=== PATIENT | female | born 1935 | race Caucasian/White ===

== ENCOUNTER 2016-10-27 21:56 | Inpatient (IN) ==
--- NOTE | 2016-10-27 22:28 | Emergency Department Note ---
Disposition Clinical Impression: Symptomatic anemia, ANA LAURA (acute kidney injury), Generalized weakness, Decreased ambulation status, Elevated troponin Disposition: Admitted As Inpatient Condition: Fair Time of Disposition: 00:32 Weakness HPI - General Chief complaint: ED Weakness Stated complaint: weakness Time Seen by Provider: 10/27/16 22:01 Source: patient, EMS Mode of arrival: ambulatory Limitations: no limitations Nursing Notes Reviewed: Yes Vital Signs Reviewed: Yes - History of Present Illness HPI Narrative: Patient is an 81-year-old female with past medical history of A. fib, COPD, arthritis. She presents today accompanied by her sons due to generalized weakness and falls over the past several days. Son states that the patient has been slightly altered from baseline, has also been weaker than usual. She lives by herself, basic that they can no longer take care of her. She herself admits to worsened generalized weakness, denies any other chest pain, nausea, vomiting, fevers, abdominal pain, numbness, tingling. She also admits to shortness of breath with ambulation. She says that this is near baseline for her COPD, chronically wears 2-3 L nasal cannula oxygen home. Pain Scale: 10 - Related Data Home Medications Medication Instructions Recorded Confirmed ALPRAZolam [Xanax 1 MG Tablet] 1 mg PO BID #0 08/11/15 10/07/15 Albuterol Sulfate [Proair Hfa] 2 puff IH Q4H PRN 10/07/15 10/08/15 Diclofenac Sodium [Voltaren] 1 appl TP QID 10/07/15 10/07/15 Furosemide [Lasix] 20 mg PO DAILY 10/07/15 10/07/15 Polyethylene Glycol 3350 [MiraLAX 17 gm PO DAILY 10/07/15 10/08/15 bowel prep] Previous Rx's Medication Instructions Recorded Rivaroxaban [Xarelto] 20 mg PO DAILY #30 tablet 08/17/15 Amiodarone [Cordarone] 200 mg PO DAILY #30 tablet 08/23/15 Aspirin 81 mg PO DAILY #30 tab.chew 08/23/15 Atorvastatin [Lipitor] 40 mg PO HS #30 tablet 08/23/15 Budesonide/Formoterol 80/4.5 2 puff IH BIDR #2 inhaler 08/23/15 [Symbicort 80/4.5] Carvedilol [Coreg] 6.25 mg PO BIDWM #60 tablet 08/23/15 Lisinopril [Zestril] 2.5 mg PO DAILY #30 tablet 08/23/15 OxyCODONE/APAP 10/325 [Percocet 1 each PO Q6H PRN 7 Days 10/09/15 10/325 MG] Allergies Allergy/AdvReac Type Severity Reaction Status Date / Time prednisone Allergy Hives Verified 08/11/15 11:43 All systems ED: reviewed and negative except as stated. Constitutional: Denies: fever Cardiovascular: Denies: chest pain Respiratory: Reports: dyspnea. Denies: cough, wheezes Gastrointestinal: Denies: abdominal pain, nausea, vomiting, diarrhea Neurological: Reports: weakness. Denies: numbness, paresthesias Endocrine: Denies: fatigue Hematological/Lymphatic: Denies: easy bleeding Past Medical History - Past Medical History Attestation: Yes The following information was validated with the patient. Source: patient Medical history: Reports: arthritis, atrial fibrillation, COPD, other Surgical history: Reports: no surgical history Psychiatric history: Reports: no psych history WEDDING COORDINATOR history: Reports: no WEDDING COORDINATOR history - Social History Smoking Status: Former smoker Smokeless Tobacco Status: No Alcohol use: Reports: none Drug use: Reports: none Physical Exam - General Limitations: no limitations General appearance: alert, in no apparent distress - Head Head exam: atraumatic, normocephalic, normal inspection - Eye Eye exam: Present: normal appearance, PERRL, EOMI - ENT ENT exam: normal exam, normal oropharynx, mucous membranes moist - Neck Neck exam: Present: normal inspection, full ROM, trachea midline - Chest Chest inspection: Present: normal inspection, symmetric chest wall rise - Respiratory Respiratory exam: Present: wheezes (Mild wheeze in all lung topete) - Cardiovascular Cardiovascular exam: Present: regular rate, normal rhythm, normal heart sounds - Abdominal Exam Abdominal exam: Present: soft, Non-Tender. Absent: tenderness, distention, guarding, rebound, rigidity - Extremities Exam Extremities exam: Present: full ROM, pedal edema (Bilateral lower extremity pitting edema). Absent: tenderness - Back Exam Back exam: Present: other (Kyphosis). Absent: tenderness - Neurological Exam Neurological exam: Present: alert, oriented X3, CN II-XII intact. Absent: motor sensory deficit - Psychiatric Psychiatric exam: Present: normal affect, normal mood - Skin Skin exam: Present: warm, dry, intact, pallor Course Course Narrative: Vitals within normal limits. Physical exam shows pale patient, pleasant, no focal neurologic deficits. Mild wheeze in all lung topete. Heart regular rate and rhythm. Abdominal exam benign. We will obtain basic blood work, EKG, chest x-ray, troponin, urinalysis. Patient has refused head CT at this time. I do believe that she is of sound mind and capacity to make this decision on her own. She is alert and oriented 3, answering all questions appropriately, does not appear altered on my exam. 23:54 CBC shows hemoglobin of 6.4. White blood cell count 13. BMP shows ANA LAURA. Troponin elevated at 0.07. No active chest pain at this time. However, patient has generalized weakness. We will admit for symptomatic anemia, ANA LAURA, elevated troponin level, generalized weakness, difficulty with ambulation. Vital Signs Temperature 0 F L 10/27/16 21:58 Pulse Rate 78 10/27/16 21:58 Respiratory Rate 18 10/27/16 21:58 Blood Pressure 100/56 10/27/16 21:58 O2 Sat by Pulse Oximetry 96 10/27/16 21:58 Temperature 0 F L 10/27/16 21:58 Pulse Rate 67 10/28/16 00:40 Respiratory Rate 20 10/28/16 00:40 Blood Pressure 95/48 10/28/16 00:40 O2 Sat by Pulse Oximetry 92 10/28/16 00:40 Oxygen Delivery Oxygen Delivery Nasal Cannula Weakness - MDM Narrative Medical decision making narrative: CBC shows hemoglobin of 6.4. White blood cell count 13. BMP shows ANA LAURA. Troponin elevated at 0.07. No active chest pain at this time. However, patient has generalized weakness. We will admit for symptomatic anemia, ANA LAURA, elevated troponin level, generalized weakness, difficulty with ambulation. - Medical Records Medical records reviewed: Yes I reviewed the patient's medical records. - Lab Data Lab results reviewed: Yes I reviewed the patient's lab results. Result diagrams: 10/27/16 23:03 10/27/16 23:03 Lab Results 10/27/16 10/27/16 10/27/16 Range/Units 22:42 23:03 23:03 WBC 13.6 H (4.3-11.1) K/mcL RBC 3.44 L (3.82-4.97) M/mcL Hgb 6.4 L (11.5-15.4) g/dL Hct 24.5 L (35.3-44.9) % MCV 71.2 L (83.0-100.0) fL MCH 18.6 L (28.0-33.3) pg MCHC 26.1 L (31.6-35.5) g/dL RDW 20.6 H (11.5-14.5) % Plt Count 323 (140-400) K/mcL MPV 10.0 (9.4-12.4) fL Immature Gran % 0.6 (0-4) % Seg Neutrophils % 64.9 % Lymphocytes % 25.2 % Monocytes % 8.9 % Eosinophils % 0.2 % Basophils % 0.2 % Neutrophils # 8.8 (1.6-8.9) K/mcL Lymphocytes # 3.4 (0.6-4.6) K/mcL Monocytes # 1.2 (0.0-1.3) K/mcL Eosinophils # 0.0 (0.0-0.6) K/mcL Basophils # 0.0 (0.0-0.2) K/mcL Platelet Estimate Normal (Normal) Hypochromasia Present A (Not Present) Sodium 137 (136-145) mEq/L Potassium 3.7 (3.5-4.5) mEq/L Chloride 85 L (98-109) mEq/L Carbon Dioxide 42 H* (19-29) mEq/L BUN 46 H (7-20) mg/dL Creatinine 1.39 H (0.57-1.11) mg/dL Est GFR ( Amer) 44 L (> 60) Est GFR (Non-Af Amer) 36 L (> 60) BUN/Creatinine Ratio 33 H (6-26) Glucose 135 H (70-99) mg/dL Calculated Osmolality 298 (280-300) Calcium 8.5 L (8.6-10.8) mg/dL Total Bilirubin 0.4 (0.2-1.2) mg/dL AST 22 (5-34) Units/L ALT 18 (0-55) Units/L Alkaline Phosphatase 109 (38-126) Units/L Troponin I (0-0.03) ng/mL Serum Total Protein 5.4 L (6.0-8.3) g/dL Albumin 2.8 L (3.5-5.0) g/dL Globulin 2.6 (2.4-3.5) g/dL Albumin/Globulin Ratio 1.1 (1.1-2.2) TSH 6.257 H (0.350-4.840) mcIU/mL Urine Color Yellow (Yellow) Urine Clarity Cloudy A (Clear) Urine pH 5.5 (5.0-8.0) pH Units Ur Specific [place] 1.016 (1.010-1.025) Urine Protein Trace (Neg-Trace) mg/dL Urine Glucose (UA) Normal (Normal) mg/dL Urine Ketones Negative (Negative) mg/dL Urine Blood Negative (Negative) Urine Nitrite Negative (Negative) Urine Bilirubin Negative (Negative) Urine Urobilinogen Normal (Normal) mg/dL Ur Leukocyte Esterase Negative (Negative) Urine Microscopic RBC 3-5 H (0-3) per hpf Urine Microscopic WBC 3-5 H (0-3) per hpf Ur Squamous Epith Cells Many H (None-Few) per lpf Urine Bacteria Few (None-Few) per hpf Hyaline Casts None Seen (None-Few) per lpf Ur Culture Indicated? NO (NO) 10/27/16 Range/Units 23:03 WBC (4.3-11.1) K/mcL RBC (3.82-4.97) M/mcL Hgb (11.5-15.4) g/dL Hct (35.3-44.9) % MCV (83.0-100.0) fL MCH (28.0-33.3) pg MCHC (31.6-35.5) g/dL RDW (11.5-14.5) % Plt Count (140-400) K/mcL MPV (9.4-12.4) fL Immature Gran % (0-4) % Seg Neutrophils % % Lymphocytes % % Monocytes % % Eosinophils % % Basophils % % Neutrophils # (1.6-8.9) K/mcL Lymphocytes # (0.6-4.6) K/mcL Monocytes # (0.0-1.3) K/mcL Eosinophils # (0.0-0.6) K/mcL Basophils # (0.0-0.2) K/mcL Platelet Estimate (Normal) Hypochromasia (Not Present) Sodium (136-145) mEq/L Potassium (3.5-4.5) mEq/L Chloride (98-109) mEq/L Carbon Dioxide (19-29) mEq/L BUN (7-20) mg/dL Creatinine (0.57-1.11) mg/dL Est GFR ( Amer) (> 60) Est GFR (Non-Af Amer) (> 60) BUN/Creatinine Ratio (6-26) Glucose (70-99) mg/dL Calculated Osmolality (280-300) Calcium (8.6-10.8) mg/dL Total Bilirubin (0.2-1.2) mg/dL AST (5-34) Units/L ALT (0-55) Units/L Alkaline Phosphatase (38-126) Units/L Troponin I 0.07 H* (0-0.03) ng/mL Serum Total Protein (6.0-8.3) g/dL Albumin (3.5-5.0) g/dL Globulin (2.4-3.5) g/dL Albumin/Globulin Ratio (1.1-2.2) TSH (0.350-4.840) mcIU/mL Urine Color (Yellow) Urine Clarity (Clear) Urine pH (5.0-8.0) pH Units Ur Specific [place] (1.010-1.025) Urine Protein (Neg-Trace) mg/dL Urine Glucose (UA) (Normal) mg/dL Urine Ketones (Negative) mg/dL Urine Blood (Negative) Urine Nitrite (Negative) Urine Bilirubin (Negative) Urine Urobilinogen (Normal) mg/dL Ur Leukocyte Esterase (Negative) Urine Microscopic RBC (0-3) per hpf Urine Microscopic WBC (0-3) per hpf Ur Squamous Epith Cells (None-Few) per lpf Urine Bacteria (None-Few) per hpf Hyaline Casts (None-Few) per lpf Ur Culture Indicated? (NO) - Radiology Data Radiology results reviewed: Yes I reviewed the patient's radiology results. Chest X-Ray 10/27/16 22:32 IMPRESSION: 1. No acute cardiopulmonary abnormality. 2. Large hiatal hernia. D/ / Zach Lind MD / Zach Lind MD Interpreting Provider: Zach Lind MD - EKG Data EKG attestation: Yes I reviewed and interpreted this EKG. EKG results narrative: 10/27/2016 at 22:14. Normal sinus rhythm. Rate 74. WA 186. QRS 135. QTc 419. No acute ST elevation or depression. S.B.ASelmaR. - S.Nena Situation: Demographics, MOA Background: Presenting Complaint, Relevant PMH, Meds, & Allergies Assessment: Vital Signs, Course and respsone to treatment, Exam Concerns, Patient/Family Expectation, Pertinant Lab Results Recommendation: Barrier(s) to disposition, Recommendation based on pending studies, treatments, or consults S.B.A.RSelma Report Given to: Dr. Jayjay Laguna Repor Time: 00:33 Attestation Statement - Attestation Attestation: I, Cliff Gonzales, examined this patient and my medical decision-making was reviewed with the MULTIGRAPH OPERATOR/PA/Advanced Practice Nurse/Resident Physician. I agree with the documented findings, disposition and treatment plan as described except to the extent set forth below. 81-year-old female brought in by family for concerns of increasing weakness. They state that she has been unable to perform her activities of daily living at home. Patient states she does not have any specific complaints although she agreed she has felt increasingly weak and fatigued. Patient denies cough or chest pain, palpitations, abdominal pain, nausea, vomiting. Initial evaluation reveals diminished lung sounds bilaterally however patient has a history of severe COPD. She uses 2 L of nasal cannula oxygen at home. Her oxygen saturation in the emergency department is between 88 and 92%. Initial troponin was elevated 0.07. She has been elevated to 0.17 and 0.12 in the past however this was not within a 3 day stretch and she had a negative reading prior to that. On reevaluation of her blood pressure the patient had a systolic reading of 89. She was given 500 mL of fluid. She is still awake and alert and answering questions appropriately. She is afebrile at 98.4 and does not have a leukocytosis. This is unlikely secondary to sepsis. Patient is anemic lower than she has been in the past and this could be symptomatic anemia. Patient was given 500 mL of fluid and she felt improved. She was admitted to the hospitalist for further care and evaluation of her elevated troponin as well as her hypotension.
[2016-10-27 22:48] LABS: Bilirubin,Urine Negative (Negative); Blood,Urine Negative (Negative); Clarity,Urine Cloudy (Clear); Color,Urine Yellow (Yellow); Glucose,Urine (UA) Normal (Normal); Ketones,Urine Negative (Negative); Leukocyte Esterase,Urine Negative (Negative); Nitrite,Urine Negative (Negative); PH,Urine 5.5 pH Units (5.0-8.0); Protein,Urine Trace mg/dL (Neg-Trace); Specific Gravity,Urine 1.016 (1.010-1.025); Urobilinogen,Urine Normal (Normal)
[2016-10-27 22:50] LABS: Bacteria,Urine Few per hpf (None-Few); Hyaline Casts,Urine None Seen per lpf (None-Few); Squamous Epithelial Cell,Urine Many per lpf (None-Few)
[2016-10-27 23:20] LABS: Basophils % 0.2 %; Eosinophils % 0.2 %
[2016-10-27 23:21] LABS: Hematocrit 24.5 % (35.3-44.9); Immature Granulocytes % 0.6 % (0-4); Lymphocytes # 3.4 K/mcL (0.6-4.6); Lymphocytes % 25.2 %; Mean Corpuscular HGB Conc 26.1 g/dL (31.6-35.5); Mean Corpuscular Hemoglobin 18.6 pg (28.0-33.3); Mean Corpuscular Volume 71.2 fL (83.0-100.0); Monocytes # 1.2 K/mcL (0.0-1.3); Monocytes % 8.9 %; Neutrophils # 8.8 K/mcL (1.6-8.9); Platelet Count 323 K/mcL (140-400); Red Blood Count 3.44 M/mcL (3.82-4.97); Red Cell Distribution Width 20.6 % (11.5-14.5); Segmented Neutrophils % 64.9 %
[2016-10-27 23:36] LABS: Albumin 2.8 g/dL (3.5-5.0); Albumin/Globulin Ratio 1.1 (1.1-2.2); Bilirubin,Total 0.4 mg/dL (0.2-1.2); Calcium 8.5 mg/dL (8.6-10.8); Globulin 2.6 g/dL (2.4-3.5); Potassium 3.7 mEq/L (3.5-4.5); Total Protein 5.4 g/dL (6.0-8.3)
[2016-10-27 23:38] LABS: Hemoglobin 6.4 g/dL (11.5-15.4)
[2016-10-27 23:45] LABS: Hypochromasia Present (Not Present)
[2016-10-27 23:47] LABS: Platelet Estimate Normal (Normal)
[2016-10-28] MEDS ORDERED: 0.9 % Sodium Chloride 500 ML IVC ONE (00:13)
[2016-10-28 00:23] LABS: Thyroid Stimulating Hormone 6.257 mcIU/mL (0.350-4.840)
--- NOTE | 2016-10-28 03:08 | Internal Med History&Physical ---
Date of Encounter: 10/28/16 Time of Encounter: 03:08 Assessment and Plan (1) Symptomatic anemia Current visit: Yes Status: Acute Patient has microcytic anemia, with recent iron studies showing iron deficiency. Will transfuse PRBC, to keep Hgb >8. Pt is on anticoagulation with xarelto - will check for fecal occult blood. Will check for Vit B12 and Folate as well for co-existing deficiencies. (2) Generalized weakness Current visit: Yes Status: Acute Possibly contribution by severe anemia, CHF, COPD, deconditioning. Will transfuse PRBC. Treat CHF with diuretics. PT consult (3) Systolic CHF Current visit: Yes Status: Chronic Will obtain echocardiogram. When home medication doses are confirmed, resume carvedilol and lisinopril. Qualifiers: Congestive heart failure chronicity: chronic Qualified Code(s): I50.22 - Chronic systolic (congestive) heart failure (4) COPD (chronic obstructive pulmonary disease) Current visit: Yes Status: Chronic Not in acute exacerbation at this time. Treat with bronchodilators Qualifiers: COPD type: unspecified COPD Qualified Code(s): J44.9 - Chronic obstructive pulmonary disease, unspecified (5) Chronic respiratory failure Current visit: Yes Status: Chronic Will obtain ABG - ABG showed PCO2 of 85 and PH 7.41 - pt refused BiPAP therapy. Continue supplemental Oxygen. Qualifiers: Respiratory failure complication: unspecified whether with hypoxia or hypercapnia Qualified Code(s): J96.10 - Chronic respiratory failure, unspecified whether with hypoxia or hypercapnia (6) Falls Current visit: Yes Status: Acute Possibly due to generalized weakness and deconditioning. PT consult Qualifiers: Encounter type: initial encounter Qualified Code(s): W19.XXXA - Unspecified fall, initial encounter (7) ANA LAURA (acute kidney injury) Current visit: Yes Status: Acute Possibly due to systolic CHF. Will treat with diuretics (8) Elevated troponin Current visit: Yes Status: Acute Chronic elevation - likely due to CHF. Trend troponins (9) Leukocytosis Current visit: Yes Status: Chronic Chronic leucocytosis. No acute infection suspected at this time. Monitor WBC counts Qualifiers: Leukocytosis type: unspecified Qualified Code(s): D72.829 - Elevated white blood cell count, unspecified (10) Atrial fibrillation Current visit: Yes Status: Chronic Continue home medications Qualifiers: Atrial fibrillation type: unspecified Qualified Code(s): I48.91 - Unspecified atrial fibrillation (11) Chronic anticoagulation Current visit: Yes Status: Chronic COntinue xarelto Internal Medicine - H&P: HPI Chief complaint: Generalized weakness Admitted From: Emergency Dept Plans for Post Hospital Care: Home History of present illness: Ms. Brooks is a 81 year old female with past medical history of A. fib on anticoagulation with xarelto, CHF (EF 35% in July 2015), COPD, chronic respiratory failure on home oxygen, scoliosis, arthritis. She presented to the ER due to generalized weakness and falls, last fall was about 2 days ago, while she was using her rollater. She denies any dizziness, lightheadedness, loss of consciousness associated with the fall. She denies chest pain, significant shortness of breath, cough, fever, chills, abdominal pain, dysuria, hematuria, melena, hematochezia, external bleeding. Patient was evaluated in the emergency department and was noted to have hemoglobin of 6.4 and troponin of 0.07. She is admitted to the hospitalist service for further management. Past Med Surg Social Fam HX - Past Medical History Medical history: arthritis, atrial fibrillation, COPD, other Psychiatric history: no psych history - Past Surgical History Surgical History: no surgical history - Social History Smoking Status: Former smoker Smokeless Tobacco Status: No Alcohol use: none Drug use: none - Family History Son Family Member Ethnicity: Non- Hx Family Cardiac Disorders: Yes Internal Medicine - H&P: Meds ALPRAZolam [Xanax 1 MG Tablet] 1 mg PO BID #0 08/11/15 [History] Rivaroxaban [Xarelto] 20 mg PO DAILY #30 tablet 08/17/15 [Rx] Amiodarone [Cordarone] 200 mg PO DAILY #30 tablet 08/23/15 [Rx] Aspirin 81 mg PO DAILY #30 tab.chew 08/23/15 [Rx] Atorvastatin [Lipitor] 40 mg PO HS #30 tablet 08/23/15 [Rx] Budesonide/Formoterol 80/4.5 [Symbicort 80/4.5] 2 puff IH BIDR #2 inhaler 08/22 [Rx] Carvedilol [Coreg] 6.25 mg PO BIDWM #60 tablet 08/23/15 [Rx] Lisinopril [Zestril] 2.5 mg PO DAILY #30 tablet 08/23/15 [Rx] Albuterol Sulfate [Proair Hfa] 2 puff IH Q4H PRN 10/07/15 [History] Diclofenac Sodium [Voltaren] 1 appl TP QID 10/07/15 [History] Furosemide [Lasix] 20 mg PO DAILY 10/07/15 [History] Polyethylene Glycol 3350 [MiraLAX bowel prep] 17 gm PO DAILY 10/07/15 [History] OxyCODONE/APAP 10/325 [Percocet 10/325 MG] 1 each PO Q6H PRN 7 Days 10/09/15 [Rx ] Allergies prednisone Allergy (Verified 08/11/15 11:43) Hives All Systems PM: A 10-system review of systems was performed and is negative for pertinent findings except as documented above in the HPI. - Constitutional Vitals: Temp Pulse Resp BP Pulse Ox 98.4 F 79 21 112/51 89 10/28/16 01:43 10/28/16 01:43 10/28/16 01:43 10/28/16 01:43 10/28/16 01:43 Exam: General: Not in acute distress at the time of my evaluation HEENT: Oral mucosa is moist. conjunctival palor present. No scleral icterus Neck: No obvious neck swellings Lungs: Bilateral basal crackles heard Cardiac: Irregular rhythm. Systolic murmur present Abdomen: Soft, non tender. Bowel sounds present Genitourinary: No sims catheter Neurological: Alert and oriented. No gross localizing deficits Psych: Not aggressive or agitated Extremities: B/L Pitting leg edema present Skin: No generalized rash Internal Med - H&P Results - Labs CBC & Chem 7: 10/27/16 23:03 10/27/16 23:03 - EKG Data -: EKG Interpreted by Myself EKG shows normal: sinus rhythm - Impressions ITS Impressions Chest X-Ray 10/27/16 22:32 IMPRESSION: 1. No acute cardiopulmonary abnormality. 2. Large hiatal hernia. D/ / Zach Lind MD / Zach Lind MD Interpreting Provider: Zach Lind MD
[2016-10-28] MEDS ORDERED: Naloxone 0.4 MG/ML INJ IVP PRN (03:10)
[2016-10-28] MEDS ORDERED: Furosemide 20 MG/2 ML VIAL IVP ONE (03:13)
[2016-10-28] MEDS ORDERED: 0.9 % Sodium Chloride 250 ML ONE ×3 (03:15→18:14)
[2016-10-28] MEDS ORDERED: Albuterol 2.5 MG/3 ML NEBULIZER IH PRN (04:15)
[2016-10-28 04:46] LABS: ABG Base Excess 26.5 mEq/L (-2.0 to 3.0); ABG HCO3 53.9 mEQ/L (21-27); ABG Oxygen Saturation 89 % (95-98); ABG PH 7.41 pH Units (7.32-7.45); ABG PO2 57 mmHg (85-104); ABG TCO2 56.5 mEq/L (20-26)
[2016-10-28 04:48] LABS: ABG PCO2 85 mmHg (35-45)
[2016-10-28 04:49] LABS: Blood Gas FiO2 28 %
[2016-10-28] MEDS: *HR* OxyCODONE/APAP 10/325 TABLET PO PRN ×2 (07:30→16:44)
[2016-10-28] MEDS ORDERED: Furosemide 20 MG TABLET PO SCH (09:00)
[2016-10-28 09:33] LABS: Hematocrit 25.8 % (35.3-44.9); Hemoglobin 7.1 g/dL (11.5-15.4); Mean Corpuscular HGB Conc 27.5 g/dL (31.6-35.5); Mean Corpuscular Hemoglobin 20.3 pg (28.0-33.3); Mean Corpuscular Volume 73.9 fL (83.0-100.0); Mean Platelet Volume 10.6 fL (9.4-12.4); Platelet Count 300 K/mcL (140-400); Red Blood Count 3.49 M/mcL (3.82-4.97)
[2016-10-28 09:46] LABS: BUN/Creatinine Ratio 46 (6-26); Blood Urea Nitrogen 38 mg/dL (7-20); Calcium 8.4 mg/dL (8.6-10.8); Chloride 86 mEq/L (98-109); Glucose 181 mg/dL (70-99); Magnesium 1.7 mg/dL (1.6-2.6); Osmolality,Calculated 300 (280-300); Potassium 3.8 mEq/L (3.5-4.5); Sodium 138 mEq/L (136-145); eGFR For African Americans > 60 (> 60); eGFR For Non-African Americans > 60 (> 60)
[2016-10-28 09:50] LABS: Carbon Dioxide 44 mEq/L (19-29)
[2016-10-28 10:11] LABS: Triiodothyronine (T3) Free 1.96 pg/mL (1.71-3.71)
[2016-10-28 10:28] LABS: Eosinophils # 0.1 K/mcL (0.0-0.6); Lymphocytes # 4.1 K/mcL (0.6-4.6); Monocytes # 0.1 K/mcL (0.0-1.3); Neutrophils # 7.4 K/mcL (1.6-8.9)
[2016-10-28 10:32] LABS: Anisocytosis 2+ (Not Present); Platelet Estimate Normal (Normal); Polychromasia 1+ (Not Present)
--- NOTE | 2016-10-28 10:34 | Internal Med Progress Note ---
<Ella Galan - Last Filed: 10/28/16 15:27> Date of Encounter: 10/28/16 Time of Encounter: 10:34 - Assessment and plan (1) Symptomatic anemia Current Visit: Yes Status: Acute Assessment and plan: Folic acid given due to low folate. Still waiting on fecal occult blood. (2) Generalized weakness Current Visit: Yes Status: Acute Assessment and plan: Possibly contributed by anemia, CHF, COPD. PTOT referal. (3) Chronic respiratory failure Current Visit: Yes Status: Chronic Assessment and plan: ABG showed PaCO2 of 85 and pH of 7.41. Patient refused BiPAP so continued supplemental oxygen. Will speak with patient and power of registered public surveyor to discuss code status. Qualifiers: Respiratory failure complication: unspecified whether with hypoxia or hypercapnia Qualified Code(s): J96.10 - Chronic respiratory failure, unspecified whether with hypoxia or hypercapnia (4) Falls Current Visit: Yes Status: Acute Assessment and plan: Possibly due to the generalized weakness. PTOT consult. Qualifiers: Encounter type: initial encounter Qualified Code(s): W19.XXXA - Unspecified fall, initial encounter (5) Elevated troponin Current Visit: Yes Status: Acute Assessment and plan: Trending down. (6) Atrial fibrillation Current Visit: Yes Status: Chronic Assessment and plan: Continue home medications. Qualifiers: Atrial fibrillation type: unspecified Qualified Code(s): I48.91 - Unspecified atrial fibrillation (7) Chronic anticoagulation Current Visit: Yes Status: Chronic Assessment and plan: Continues Xarelto. (8) Leukocytosis Current Visit: Yes Status: Chronic Assessment and plan: Chronic leukocytosis. Infection is not suspected. Qualifiers: Leukocytosis type: unspecified Qualified Code(s): D72.829 - Elevated white blood cell count, unspecified (9) Systolic CHF Current Visit: Yes Status: Chronic Assessment and plan: Echocardiogram ordered. Ejection fraction from 08/11/2015 was 35%. Qualifiers: Congestive heart failure chronicity: chronic Qualified Code(s): I50.22 - Chronic systolic (congestive) heart failure - Subjective Interval history: Sitting comfortably up in bed. Denied shortness of breathe, cough, chest pain, chills. Refused to have BipaP. - Constitutional Vitals: Temp Pulse Resp BP Pulse Ox 98.6 F 78 18 130/63 89 10/28/16 06:52 07/04/17 06:52 10/28/16 06:52 10/28/16 06:52 10/28/16 06:52 General appearance: Present: A&O X 3, pleasant, no acute distress - Head Head exam: Present: atraumatic, normocephalic - Eye Eye exam: Present: conjuntiva pink, sclera anicteric - Neck Neck exam general surgery: Present: supple, trachea midline. Absent: lymphadenopathy - Respiratory Respiratory exam: Present: rhonchi. Absent: accessory muscle use, wheezes - Expanded Respiratory Exam Location: rhonchi: Lower, Left, Right, Upper (left lower and right upper) - Cardiovascular Cardiovascular exam: Present: irregular rhythm, systolic murmur. Absent: diastolic murmur, gallop, rubs - GI/Abdominal GI/Abdominal exam: Present: normal bowel sounds, soft, no peritoneal signs. Absent: distended, tenderness - Extremities Exam Extremities exam: Present: calf tenderness, pedal edema, warm, radial pulses palpable and symetrical. Absent: cyanotic - Neurological Exam Neurological exam: Present: oriented X3, no focal deficits. Absent: pronater drift, facial droop, speech deficit - Skin Skin exam: Present: dry, intact Internal Medicine: Result - Labs CBC & Chem 7: 10/28/16 09:11 10/28/16 09:11 Labs: Short CBC 10/28/16 Range/Units 09:11 WBC 11.8 H (4.3-11.1) K/mcL Hgb 7.1 L (11.5-15.4) g/dL Hct 25.8 L (35.3-44.9) % Plt Count 300 (140-400) K/mcL Neutrophils # 7.4 (1.6-8.9) K/mcL BMP 10/28/16 09:11 Sodium 138 Potassium 3.8 Chloride 86 L Carbon Dioxide 44 H* BUN 38 H Creatinine 0.82 Glucose 181 H Calcium 8.4 L Cardiac Enzymes 10/28/16 Range/Units 09:11 Troponin I 0.05 H* (0-0.03) ng/mL - ABG Interpretation ABG results: ABG ABG pH 7.41 pH Units (7.32-7.45) 10/28/16 04:15 ABG pCO2 85 mmHg (35-45) H* 10/28/16 04:15 ABG pO2 57 mmHg (85-104) L 10/28/16 04:15 ABG O2 Saturation 89 % (95-98) L 10/28/16 04:15 - VTE Reasons for not Prescribing Prophylaxis: Not indicated-Anticoagulated or INR therapeutic Consult Discharge Plan - Plan Referrals: Magdy Parra MD [Primary Care Provider] - <Wei Lundy - Last Filed: 10/28/16 16:23> Date of Encounter: 10/28/16 - Constitutional Vitals: Temp Pulse Resp BP Pulse Ox 98.2 F 64 16 121/51 91 10/28/16 15:38 10/28/16 15:38 10/28/16 15:38 10/28/16 15:38 10/28/16 15:38 Internal Medicine: Result - Labs CBC & Chem 7: 10/28/16 09:11 10/28/16 09:11 Labs: Short CBC 10/28/16 Range/Units 09:11 WBC 11.8 H (4.3-11.1) K/mcL Hgb 7.1 L (11.5-15.4) g/dL Hct 25.8 L (35.3-44.9) % Plt Count 300 (140-400) K/mcL Neutrophils # 7.4 (1.6-8.9) K/mcL BMP 10/28/16 09:11 Sodium 138 Potassium 3.8 Chloride 86 L Carbon Dioxide 44 H* BUN 38 H Creatinine 0.82 Glucose 181 H Calcium 8.4 L Cardiac Enzymes 10/28/16 10/28/16 Range/Units 09:11 15:21 Troponin I 0.05 H* 0.04 H* (0-0.03) ng/mL - ABG Interpretation ABG results: ABG ABG pH 7.41 pH Units (7.32-7.45) 10/28/16 04:15 ABG pCO2 85 mmHg (35-45) H* 10/28/16 04:15 ABG pO2 57 mmHg (85-104) L 10/28/16 04:15 ABG O2 Saturation 89 % (95-98) L 10/28/16 04:15 - Attending Attestation I examined this patient and my medical decision-making was reviewed with the Resident Physician, Dr Galan. I agree with the documented findings, disposition and treatment plan as described except to the extent set forth below. We will add acetazolamide for acute on chronic hypercarbic respiratory failure and respiratory acidosis. We will stop Xarelto due to concern for anemia and GI bleed.
[2016-10-28 12:20] LABS: Folate 2.2 ng/mL (7.0-31.4)
[2016-10-28] MEDS: ALPRAZolam 0.25 MG TABLET PO PRN (16:44)
[2016-10-28] MEDS: acetaZOLAMIDE 250 MG TABLET PO SCH (16:45)
[2016-10-28] MEDS: metOLazone 5 MG TABLET PO SCH (16:45)
[2016-10-28] MEDS: Budesonide/Formoterol 80/4.5 MDI IH SCH (21:49)
[2016-10-28] MEDS: Ascorbic Acid 500 MG TABLET PO SCH (22:28)
[2016-10-28] MEDS: FERROUS SULFATE 142 MG PO SCH (22:28)
[2016-10-29 01:56] LABS: Basophils % 0.2 %; Eosinophils % 0.1 %; Immature Granulocytes % 0.6 % (0-4)
[2016-10-29 01:58] LABS: Hematocrit 31.3 % (35.3-44.9); Hemoglobin 8.4 g/dL (11.5-15.4); Lymphocytes # 3.9 K/mcL (0.6-4.6); Lymphocytes % 39.3 %; Mean Corpuscular HGB Conc 26.8 g/dL (31.6-35.5); Mean Corpuscular Hemoglobin 20.5 pg (28.0-33.3); Mean Corpuscular Volume 76.5 fL (83.0-100.0); Mean Platelet Volume 9.7 fL (9.4-12.4); Monocytes % 9.8 %; Neutrophils # 4.9 K/mcL (1.6-8.9); Platelet Count 272 K/mcL (140-400); Red Blood Count 4.09 M/mcL (3.82-4.97)
[2016-10-29 02:18] LABS: Alanine Aminotransferase 16 Units/L (0-55); Albumin 2.6 g/dL (3.5-5.0); Alkaline Phosphatase 90 Units/L (38-126); Aspartate Amino Transferase 14 Units/L (5-34); BUN/Creatinine Ratio 36 (6-26); Calcium 8.8 mg/dL (8.6-10.8); Chloride 89 mEq/L (98-109); Globulin 2.7 g/dL (2.4-3.5); Glucose 98 mg/dL (70-99); Osmolality,Calculated 298 (280-300); Sodium 142 mEq/L (136-145); Total Protein 5.3 g/dL (6.0-8.3); eGFR For African Americans > 60 (> 60); eGFR For Non-African Americans > 60 (> 60)
[2016-10-29 02:26] LABS: Bilirubin,Total 0.8 mg/dL (0.2-1.2); Blood Urea Nitrogen 24 mg/dL (7-20)
[2016-10-29 02:29] LABS: Carbon Dioxide 45 mEq/L (19-29)
[2016-10-29 02:38] LABS: Ferritin 21 ng/ml (5-204)
[2016-10-29 02:50] LABS: Platelet Estimate Normal (Normal)
[2016-10-29 02:51] LABS: Anisocytosis 2+ (Not Present); Hypochromasia Present (Not Present); Microcytosis Present (Not Present); Toxic Granulation Present (Not Present)
[2016-10-29] MEDS: Budesonide/Formoterol 80/4.5 MDI IH SCH ×2 (08:00→19:54)
[2016-10-29] MEDS: Furosemide 40 MG TABLET PO SCH (08:05)
[2016-10-29] MEDS: Ascorbic Acid 500 MG TABLET PO SCH ×2 (08:05→19:37)
[2016-10-29] MEDS: Folic Acid 1 MG TABLET PO SCH (08:05)
[2016-10-29] MEDS: acetaZOLAMIDE 250 MG TABLET PO SCH (08:05)
[2016-10-29] MEDS: *HR* Amiodarone 200 MG TABLET PO SCH (08:05)
[2016-10-29] MEDS: ALPRAZolam 0.25 MG TABLET PO PRN ×2 (08:08→19:37)
[2016-10-29] MEDS: *HR* OxyCODONE/APAP 10/325 TABLET PO PRN ×3 (08:08→21:11)
[2016-10-29] MEDS: FERROUS SULFATE 142 MG PO SCH (08:14)
--- NOTE | 2016-10-29 09:48 | Internal Med Progress Note ---
<Ella Galan - Last Filed: 10/29/16 14:03> Date of Encounter: 10/29/16 Time of Encounter: 09:46 - Assessment and plan (1) Symptomatic anemia Current Visit: Yes Status: Acute Assessment and plan: Patient refused EGD/ colonoscopy so GI consult canceled. Palliative care consulted to discuss code status. Folic acid given due to low folate. Still waiting on fecal occult blood. (2) Generalized weakness Current Visit: Yes Status: Acute Assessment and plan: Possibly contributed by anemia, CHF, COPD. PTOT referal. (3) Chronic respiratory failure Current Visit: Yes Status: Chronic Assessment and plan: ABG showed PaCO2 of 85 and pH of 7.41. Patient refused BiPAP so continued supplemental oxygen. Qualifiers: Respiratory failure complication: unspecified whether with hypoxia or hypercapnia Qualified Code(s): J96.10 - Chronic respiratory failure, unspecified whether with hypoxia or hypercapnia (4) Falls Current Visit: Yes Status: Acute Assessment and plan: Possibly due to the generalized weakness. PTOT consult. Qualifiers: Encounter type: initial encounter Qualified Code(s): W19.XXXA - Unspecified fall, initial encounter (5) Elevated troponin Current Visit: Yes Status: Acute Assessment and plan: Trending down. (6) Atrial fibrillation Current Visit: Yes Status: Chronic Assessment and plan: Xarelto stopped last night for the possibility of EGD/ colonscopy. However patient refused procedure. Qualifiers: Atrial fibrillation type: unspecified Qualified Code(s): I48.91 - Unspecified atrial fibrillation (7) Chronic anticoagulation Current Visit: Yes Status: Chronic Assessment and plan: Xarelto discontinued last night due to possible EGD/ colonscopy today- however patient refused procedure. (8) Leukocytosis Current Visit: Yes Status: Chronic Assessment and plan: WBC returned to normal. History of leukocytosis. Qualifiers: Leukocytosis type: unspecified Qualified Code(s): D72.829 - Elevated white blood cell count, unspecified (9) Systolic CHF Current Visit: Yes Status: Chronic Assessment and plan: Echocardiogram ordered. Ejection fraction from 08/11/2015 was 35%. Qualifiers: Congestive heart failure chronicity: chronic Qualified Code(s): I50.22 - Chronic systolic (congestive) heart failure - Subjective Interval history: Sitting comfortably up in bed. Denied shortness of breathe, cough, chest pain, chills. Refused to have EGD. Requesting breakfast since she is no longer NPO. - Constitutional Vitals: Temp Pulse Resp BP Pulse Ox 98.3 F 67 20 118/55 97 10/29/16 06:51 10/29/16 06:51 10/29/16 08:03 10/29/16 06:51 10/29/16 08:03 General appearance: Present: A&O X 3, pleasant, no acute distress, answers questions appropriately - Head Head exam: Present: atraumatic - Eye Eye exam: Present: normal appearance, conjuntiva pink. Absent: periorbital swelling, scleral icterus - Respiratory Respiratory exam: Present: rhonchi. Absent: accessory muscle use, chest wall tenderness, respiratory distress, wheezes - Expanded Respiratory Exam Location: rhonchi: Left, Lower - Cardiovascular Cardiovascular exam: Present: irregular rhythm, systolic murmur. Absent: gallop - GI/Abdominal GI/Abdominal exam: Present: normal bowel sounds. Absent: guarding, tenderness - Expanded Lower Extremities Exam Lower Leg exam: Present: swelling, tenderness. Absent: ecchymosis - Skin Skin exam: Present: dry, intact Internal Medicine: Result - Labs CBC & Chem 7: 10/29/16 01:38 10/29/16 01:38 Labs: Short CBC 10/28/16 10/29/16 Range/Units 09:11 01:38 WBC 9.8 (4.3-11.1) K/mcL Hgb 8.4 L (11.5-15.4) g/dL Hct 31.3 L (35.3-44.9) % Plt Count 272 (140-400) K/mcL Neutrophils # 7.4 4.9 (1.6-8.9) K/mcL BMP 10/28/16 10/29/16 09:11 01:38 Sodium 138 142 Potassium 3.8 4.0 Chloride 86 L 89 L Carbon Dioxide 44 H* 45 H* BUN 38 H 24 H D Creatinine 0.82 0.67 Glucose 181 H 98 Calcium 8.4 L 8.8 Cardiac Enzymes 10/28/16 10/28/16 Range/Units 09:11 15:21 Troponin I 0.05 H* 0.04 H* (0-0.03) ng/mL Liver Function 10/29/16 Range/Units 01:38 Total Bilirubin 0.8 D (0.2-1.2) mg/dL AST 14 (5-34) Units/L ALT 16 (0-55) Units/L Alkaline Phosphatase 90 (38-126) Units/L Albumin 2.6 L (3.5-5.0) g/dL - ABG Interpretation ABG results: ABG ABG pH 7.41 pH Units (7.32-7.45) 10/28/16 04:15 ABG pCO2 85 mmHg (35-45) H* 10/28/16 04:15 ABG pO2 57 mmHg (85-104) L 10/28/16 04:15 ABG O2 Saturation 89 % (95-98) L 10/28/16 04:15 - VTE Reasons for not Prescribing Prophylaxis: Not indicated-Anticoagulated or INR therapeutic Consult Discharge Plan - Plan Referrals: Magdy Parra MD [Primary Care Provider] - 11/04/16 1:45 pm (Please follow up as schedule...) <Wei Lundy - Last Filed: 10/29/16 18:06> Date of Encounter: 10/29/16 - Assessment and plan (1) Acute on chronic systolic heart failure Current Visit: Yes Status: Acute Assessment and plan: IV Lasix. Daily weights. Strict I's and O's. Monitor BUN and creatinine. Follow-up echocardiogram. - Constitutional Vitals: Temp Pulse Resp BP Pulse Ox 99.2 F 78 16 115/72 93 10/29/16 15:06 10/29/16 15:06 10/29/16 15:06 10/29/16 15:06 10/29/16 15:06 Internal Medicine: Result - Labs CBC & Chem 7: 10/29/16 01:38 10/29/16 01:38 Labs: Short CBC 10/29/16 Range/Units 01:38 WBC 9.8 (4.3-11.1) K/mcL Hgb 8.4 L (11.5-15.4) g/dL Hct 31.3 L (35.3-44.9) % Plt Count 272 (140-400) K/mcL Neutrophils # 4.9 (1.6-8.9) K/mcL BMP 10/29/16 01:38 Sodium 142 Potassium 4.0 Chloride 89 L Carbon Dioxide 45 H* BUN 24 H D Creatinine 0.67 Glucose 98 Calcium 8.8 Liver Function 10/29/16 Range/Units 01:38 Total Bilirubin 0.8 D (0.2-1.2) mg/dL AST 14 (5-34) Units/L ALT 16 (0-55) Units/L Alkaline Phosphatase 90 (38-126) Units/L Albumin 2.6 L (3.5-5.0) g/dL - ABG Interpretation ABG results: ABG ABG pH 7.41 pH Units (7.32-7.45) 10/28/16 04:15 ABG pCO2 85 mmHg (35-45) H* 10/28/16 04:15 ABG pO2 57 mmHg (85-104) L 10/28/16 04:15 ABG O2 Saturation 89 % (95-98) L 10/28/16 04:15 - Attending Attestation I examined this patient and my medical decision-making was reviewed with the Resident Physician, Dr Galan. I agree with the documented findings, disposition and treatment plan as described except to the extent set forth below. Patient has 3+ lower extremity pitting edema. We will treat her with Lasix. Daily weights. Strict I's and O's. I discussed the plan with point of care. Patient agreed to DNR/DNI. She refuses snf placement. She refuses short-term rehabilitation. Palliative care service have reached out to the patient's family strongly encouraged her to consider subacute rehabilitation.
--- NOTE | 2016-10-29 10:06 | Palliative - Consult Note ---
Date of Encounter: 10/29/16 Time of Encounter: 09:20 - Assessment and Plan (1) NSTEMI (non-ST elevated myocardial infarction) Current Visit: No Status: Acute Assessment and plan: Elevated troponin is probably related to CHF, this is being followed by the primary care hospitalist team. (2) Goals of care, counseling/discussion Current Visit: Yes Status: Acute Assessment and plan: In a pool of last year the patient was DNR [facility] DNI. I have talked with her at length about this and she wishes to return to that status. She really never wanted to have it changed at all. Her overall goal of care is to return home. Currently there is some concern about whether or not the family can take care of her adequately in the current situation that she has as to discuss about getting home health care set up and then arranging for private home care to make up the difference. The patient is hospice eligible based on her PCO2 and her history of COPD., However at this time the patient appears to want to be at least reasonably aggressive in her care, however she will also wishes to pick and choose. Therefore she has decided against a colonoscopy if she does not wish to have any further workup of the anemia and wishes to have hospice care she certainly can we will discuss this further. (3) Leukocytosis Current Visit: Yes Status: Chronic Assessment and plan: The patient has a history of CLL, this is not being treated currently and just being watched the leukocytosis is in all likelihood related back to that. Qualifiers: Leukocytosis type: unspecified Qualified Code(s): D72.829 - Elevated white blood cell count, unspecified (4) Chronic lymphocytic leukemia Current Visit: No Status: Acute Assessment and plan: Patient was seen approximately year ago with a cancer center. She has not followed up. (5) COPD (chronic obstructive pulmonary disease) Current Visit: No Status: Chronic Assessment and plan: The patient does have severe COPD for which she is on O2 at home. She also has an elevated PCO2 on her blood gas on admission to the hospital. Based on that if she wishes she may avail herself of hospice. However at this time she does seem to wish to have aggressive care we will discuss this further with her family. Qualifiers: COPD type: emphysema Emphysema type: unspecified Qualified Code(s): J43.9 - Emphysema, unspecified (6) Falls Current Visit: Yes Status: Acute Assessment and plan: In all likelihood this is secondary to her being anemic and probably weaker than she thinks. In 10 you to watch. Qualifiers: Encounter type: initial encounter Qualified Code(s): W19.XXXA - Unspecified fall, initial encounter (7) Atrial fibrillation Current Visit: Yes Status: Chronic Assessment and plan: Chronic, on's Route to plan per hospitalist team Qualifiers: Atrial fibrillation type: unspecified Qualified Code(s): I48.91 - Unspecified atrial fibrillation Palliative-CN HPI - Data of Consult Patient: new to practice Requesting Physician: Wei Lundy MD Primary Care Provider: Magdy Parra MD - Consult Narrative Palliative Care/Comfort Measures: Palliative care Reason for consult: Goals of care and CODE STATUS History of present illness: Ms. Brooks is a 81 year old female 81-year-old with history of atrial fibrillation on anticoagulation, congestive heart failure with an EF of 35% in July 2015 3 of COPD on home oxygen. Presented to the emergency department initially with generalized weakness and falls. All having occurred a couple of days prior. She was using her Rollator states that it snagged on the floor. However is continued to have overall weakness brought in the emergency department she was admitted due to the fact that she had a very decreased hemoglobin of 6.4 slightly elevated troponin at 0.07. Denies any dizziness lightheadedness loss of consciousness assisted with the fall. She denies any chest pain or significant shortness of breath. She denies any cough fever or chills she denies any abdominal pain. Her hematuria change in her stool habits or bleeding. She states that she does have a bowel movement approximately every 2-3 days. She is on Percocet for pain which is holding her pain well under control. States that she does have a good appetite and she is able to get around at home. She wishes to have further help at home , does not wish to go to a [facility]. CC: Wei Lundy MD Recent fall, he should states this was due to problem with her walker and not because of generalized weakness. Past Med Surg Social Fam HX - Past Medical History Medical history: arthritis, atrial fibrillation, COPD, other Psychiatric history: no psych history - Past Surgical History Surgical History: no surgical history - Social History Smoking Status: Former smoker Smokeless Tobacco Status: No Alcohol use: none Drug use: none - Family History Son Family Member Ethnicity: Non- Hx Family Cardiac Disorders: Yes Medications and Allergies Rivaroxaban [Xarelto] 20 mg PO DAILY #30 tablet 08/17/15 [Rx] Amiodarone [Cordarone] 200 mg PO DAILY #30 tablet 08/23/15 [Rx] Aspirin 81 mg PO DAILY #30 tab.chew 08/23/15 [Rx] Atorvastatin [Lipitor] 40 mg PO HS #30 tablet 08/23/15 [Rx] Budesonide/Formoterol 80/4.5 [Symbicort 80/4.5] 2 puff IH BIDR #2 inhaler 08/22 [Rx] Carvedilol [Coreg] 6.25 mg PO BIDWM #60 tablet 08/23/15 [Rx] Albuterol Sulfate [Proair Hfa] 2 puff IH Q4H PRN 10/07/15 [History] Diclofenac Sodium [Voltaren] 1 appl TP QID 10/07/15 [History] Polyethylene Glycol 3350 [MiraLAX bowel prep] 17 gm PO DAILY 10/07/15 [History] Ascorbate Calcium [Vitamin C] 500 mg PO BID 10/28/16 [History] Clarithromycin [Biaxin] 500 mg PO BID 10/28/16 [History] Ferrous Sulfate [Slow Fe] 142 mg PO BID 10/28/16 [History] Furosemide [Lasix] 40 - 80 mg PO DAILY 10/28/16 [History] Lisinopril 2.5 mg PO DAILY 10/28/16 [History] OxyCODONE Immed Rel [Roxicodone 5 MG] 5 mg PO TID 10/28/16 [History] OxyCODONE/APAP 10/325 [Percocet 10/325 MG] 1 each PO TID 10/28/16 [History] Oxycodone HCl/Acetaminophen [Percocet 10-325 mg Tablet] 2 each PO HS 10/28/16 [ History] Potassium Chloride [K-Tab ER] 20 meq PO DAILY 10/28/16 [History] metOLazone [Zaroxolyn] 5 mg PO Q48H 10/28/16 [History] Allergies prednisone Allergy (Verified 08/11/15 11:43) Hives - Constitutional Constitutional ROS PAL: frequent falls, no decreased appetite, no anorexia, no fever(s), no lethargy, no malaise - EENT Eyes: no discharge, no pain Ears: no ear discharge, no ear pain Ears, nose, mouth, throat: no dysphagia, no epistaxis, no mouth pain, no nasal congestion - Cardiovascular Cardiovascular ROS: irregular heart rhythm, no chest pain, no chest pain at rest , no dyspnea on exertion - Respiratory Respiratory: dyspnea on exertion (Nothing out of the ordinary for her but she does have some dyspnea on exertion), no cough, no dyspnea (Nothing out of the ordinary for her) - Gastrointestinal Gastrointestinal: constipation (She states that it is normal for her to not have a bowel movement but once every 2-3 days.), no diarrhea, no melena, no nausea, no vomiting - Genitourinary Palliative ROS female: no urinary frequency, no urinary hesitancy, no urinary incontinence - Musculoskeletal Musculoskeletal ROS IM: muscle weakness - Integumentary ROS Integumentary: no rash, no skin pain - Neurological Neurological ROS: frequent falls, weakness, no focal weakness (Analyzed), no vertigo - Psychiatric Psychiatric general PM: no change in appetite, no homicidal ideation, no hopelessness, no suicidal ideation - Endocrine Endocrine IM: as per HPI Palliative Care-Exam - Constitutional Vitals: Temp Pulse Resp BP Pulse Ox 98.3 F 67 20 118/55 97 10/29/16 06:51 10/29/16 06:51 10/29/16 08:03 10/29/16 06:51 10/29/16 08:03 General appearance: Present: thin - Head Head Exam: Present: atraumatic, normal inspection - Eye Eye exam: Present: EOMI, normal appearance, PERRL - ENT ENT exam: Present: mucous membranes moist - Respiratory Respiratory exam: Present: decreased breath sounds, rales - Cardiovascular Cardiovascular exam: Present: irregular rhythm - GI/Abdominal Exam GI/Abdominal exam: Present: normal bowel sounds. Absent: soft, tenderness - Extremities Exam Extremities exam: Present: pedal edema. Absent: normal inspection, tenderness - Neurological Exam Neurological exam: Present: alert, oriented X3 - Psychiatric Psychiatric exam: Present: normal affect, normal mood. Absent: agitated, anxious - Skin Skin exam: Present: dry, warm Internal Medicine - CN: Reslt - Labs CBC & Chem 7: 10/29/16 01:38 10/29/16 01:38 Labs: Short CBC 10/28/16 10/29/16 Range/Units 09:11 01:38 WBC 9.8 (4.3-11.1) K/mcL Hgb 8.4 L (11.5-15.4) g/dL Hct 31.3 L (35.3-44.9) % Plt Count 272 (140-400) K/mcL Neutrophils # 7.4 4.9 (1.6-8.9) K/mcL BMP 10/29/16 01:38 Sodium 142 Potassium 4.0 Chloride 89 L Carbon Dioxide 45 H* BUN 24 H D Creatinine 0.67 Glucose 98 Calcium 8.8 Cardiac Enzymes 10/28/16 Range/Units 15:21 Troponin I 0.04 H* (0-0.03) ng/mL Liver Function 10/29/16 Range/Units 01:38 Total Bilirubin 0.8 D (0.2-1.2) mg/dL AST 14 (5-34) Units/L ALT 16 (0-55) Units/L Alkaline Phosphatase 90 (38-126) Units/L Albumin 2.6 L (3.5-5.0) g/dL - ABG Interpretation ABG results: ABG ABG pH 7.41 pH Units (7.32-7.45) 10/28/16 04:15 ABG pCO2 85 mmHg (35-45) H* 10/28/16 04:15 ABG pO2 57 mmHg (85-104) L 10/28/16 04:15 ABG O2 Saturation 89 % (95-98) L 10/28/16 04:15 Consult Discharge Plan - Plan Referrals: Magdy Parra MD [Primary Care Provider] - 11/04/16 1:45 pm (Please follow up as schedule...) Palliative Quality Palliative Quality: Screen for Code Status: Yes, Screen for Goals of Care: Yes, Screen for Pain: Yes, If Pain Regimen Started, Initiate Bowel Regimen: Yes, Screen for Nausea/Vomitting: Yes
--- NOTE | 2016-10-29 13:13 | Electrocardiograph Report ---
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
[2016-10-30 06:40] LABS: Basophils % 0.5 %; Hemoglobin 8.4 g/dL (11.5-15.4)
[2016-10-30 06:42] LABS: Basophils # 0.1 K/mcL (0.0-0.2); Hematocrit 31.1 % (35.3-44.9); Immature Granulocytes % 0.5 % (0-4); Lymphocytes % 45.3 %; Mean Corpuscular Hemoglobin 21.3 pg (28.0-33.3); Mean Corpuscular Volume 78.7 fL (83.0-100.0); Mean Platelet Volume 10.2 fL (9.4-12.4); Monocytes # 1.1 K/mcL (0.0-1.3); Monocytes % 9.8 %; Neutrophils # 4.9 K/mcL (1.6-8.9); Platelet Count 260 K/mcL (140-400); Red Blood Count 3.95 M/mcL (3.82-4.97); Red Cell Distribution Width 23.9 % (11.5-14.5); Segmented Neutrophils % 43.9 %
[2016-10-30 06:54] LABS: Alanine Aminotransferase 14 Units/L (0-55); Albumin 2.5 g/dL (3.5-5.0); Albumin/Globulin Ratio 0.9 (1.1-2.2); Alkaline Phosphatase 91 Units/L (38-126); Aspartate Amino Transferase 20 Units/L (5-34); BUN/Creatinine Ratio 33 (6-26); Bilirubin,Total 0.3 mg/dL (0.2-1.2); Blood Urea Nitrogen 21 mg/dL (7-20); Calcium 8.7 mg/dL (8.6-10.8); Chloride 93 mEq/L (98-109); Globulin 2.8 g/dL (2.4-3.5); Glucose 100 mg/dL (70-99); Magnesium 1.9 mg/dL (1.6-2.6); Osmolality,Calculated 295 (280-300); Potassium 4.6 mEq/L (3.5-4.5); Sodium 141 mEq/L (136-145); Total Protein 5.3 g/dL (6.0-8.3); eGFR For African Americans > 60 (> 60); eGFR For Non-African Americans > 60 (> 60)
[2016-10-30 07:04] LABS: Carbon Dioxide 43 mEq/L (19-29)
[2016-10-30] MEDS: ALPRAZolam 0.25 MG TABLET PO PRN (07:25)
[2016-10-30] MEDS: *HR* OxyCODONE/APAP 10/325 TABLET PO PRN ×2 (07:25→17:58)
[2016-10-30] MEDS: Budesonide/Formoterol 80/4.5 MDI IH SCH ×2 (07:44→20:13)
--- NOTE | 2016-10-30 07:47 | Palliative Progress Note ---
Date of Encounter: 10/30/16 Time of Encounter: 07:15 - Assessment and plan (1) NSTEMI (non-ST elevated myocardial infarction) Current Visit: No Status: Acute Assessment and plan: Probably demand ischemia related back to the CHF, hospitalist team is following. (2) Goals of care, counseling/discussion Current Visit: Yes Status: Acute Assessment and plan: CODE STATUS established yesterday DNR CCA, DNI. Patient like to go home, family is stating they are unable to take care of her at home and wishing for the patient to go to a halfway. Patient seems very reluctant and resistant to this at this time. Did attempt discussion with regard to hospice today the patient not interested at this time. (3) Leukocytosis Current Visit: Yes Status: Chronic Assessment and plan: White count appears stable hemoglobin appears stable Qualifiers: Leukocytosis type: unspecified Qualified Code(s): D72.829 - Elevated white blood cell count, unspecified (4) Chronic lymphocytic leukemia Current Visit: No Status: Acute Assessment and plan: She has not followed up with oncology, she was told that this was something that would just be in the background, not interested in having any further workup at least at this time. (5) COPD (chronic obstructive pulmonary disease) Current Visit: No Status: Chronic Assessment and plan: The patient insists that her breathing has not been a problem at all, however her PCO2 was elevated we are, and this would qualify her for hospice if she were so inclined. Qualifiers: COPD type: emphysema Emphysema type: unspecified Qualified Code(s): J43.9 - Emphysema, unspecified (6) Falls Current Visit: Yes Status: Acute Assessment and plan: PT and OT have been recommended for the patient as well as inpatient rehabilitation, at this time I am not sure if she is really interested in that or not. Qualifiers: Encounter type: initial encounter Qualified Code(s): W19.XXXA - Unspecified fall, initial encounter (7) Atrial fibrillation Current Visit: Yes Status: Chronic Assessment and plan: Her good control at this time. Qualifiers: Atrial fibrillation type: unspecified Qualified Code(s): I48.91 - Unspecified atrial fibrillation - Time Spent With Patient Total time spent is greater than 50% in coordination of care (as documented) at patient's floor/unit and/or counseling patient: - Subjective Interval history: No complaints of this morning she would just like to go home. - Constitutional Vitals: Abnormal lab results Hgb 8.4 g/dL (11.5-15.4) L 10/30/16 06:14 Hct 31.1 % (35.3-44.9) L 10/30/16 06:14 MCV 78.7 fL (83.0-100.0) L 10/30/16 06:14 MCH 21.3 pg (28.0-33.3) L 10/30/16 06:14 MCHC 27.0 g/dL (31.6-35.5) L 10/30/16 06:14 RDW 23.9 % (11.5-14.5) H 10/30/16 06:14 Toxic Granulation Present (Not Present) A 10/29/16 01:38 Polychromasia 1+ (Not Present) A 10/28/16 09:11 Hypochromasia Present (Not Present) A 10/29/16 01:38 Anisocytosis 2+ (Not Present) A 10/29/16 01:38 Microcytosis Present (Not Present) A 10/29/16 01:38 ABG pCO2 85 mmHg (35-45) H* 10/28/16 04:15 ABG pO2 57 mmHg (85-104) L 10/28/16 04:15 ABG HCO3 53.9 mEQ/L (21-27) H 10/28/16 04:15 ABG Total CO2 56.5 mEq/L (20-26) H 10/28/16 04:15 ABG O2 Saturation 89 % (95-98) L 10/28/16 04:15 ABG Base Excess 26.5 mEq/L (-2.0 to 3.0) H 10/28/16 04:15 Potassium 4.6 mEq/L (3.5-4.5) H 10/30/16 06:14 Chloride 93 mEq/L (98-109) L 10/30/16 06:14 Carbon Dioxide 43 mEq/L (19-29) H* 10/30/16 06:14 BUN 21 mg/dL (7-20) H 10/30/16 06:14 BUN/Creatinine Ratio 33 (6-26) H 10/30/16 06:14 Glucose 100 mg/dL (70-99) H 10/30/16 06:14 Troponin I 0.04 ng/mL (0-0.03) H* 10/28/16 15:21 B-Natriuretic Peptide 744 pg/mL (0-100) H 10/28/16 09:11 Serum Total Protein 5.3 g/dL (6.0-8.3) L 10/30/16 06:14 Albumin 2.5 g/dL (3.5-5.0) L 10/30/16 06:14 Albumin/Globulin Ratio 0.9 (1.1-2.2) L 10/30/16 06:14 Folate 2.2 ng/mL (7.0-31.4) L 10/28/16 09:11 TSH 6.257 mcIU/mL (0.350-4.840) H 10/27/16 23:03 Urine Clarity Cloudy (Clear) A 10/27/16 22:42 Urine Microscopic RBC 3-5 per hpf (0-3) H 10/27/16 22:42 Urine Microscopic WBC 3-5 per hpf (0-3) H 10/27/16 22:42 Ur Squamous Epith Cells Many per lpf (None-Few) H 10/27/16 22:42 General appearance: Present: no acute distress - Head Head exam: Present: atraumatic, normal inspection - Eye Eye exam: Present: normal appearance - ENT ENT exam: Present: mucous membranes moist - Respiratory Respiratory exam: Present: decreased breath sounds, rhonchi - Cardiovascular Cardiovascular exam: Present: irregular rhythm - GI/Abdominal GI/Abdominal exam: Present: normal bowel sounds, soft. Absent: tenderness - Extremities Exam Extremities exam: Present: normal inspection. Absent: tenderness - Neurological Exam Neurological exam: Present: alert - Psychiatric Psychiatric exam: Present: normal affect, normal mood. Absent: agitated, anxious - Skin Skin exam: Present: dry, warm Palliative Quality Palliative Quality: Screen for Code Status: Yes, Screen for Goals of Care: Yes, Screen for Pain: Yes, If Pain Regimen Started, Initiate Bowel Regimen: Yes, Screen for Nausea/Vomitting: Yes Code Status: 10/28/16 03:10 Resuscitation Status: Active [RES] Routine Comment: Resuscitation Status: [id number] - Labs CBC & Chem 7: 10/30/16 06:14 10/30/16 06:14 Labs: Laboratory Results - last 24 hr 10/30/16 10/30/16 06:14 06:14 WBC 11.1 RBC 3.95 Hgb 8.4 L Hct 31.1 L MCV 78.7 L MCH 21.3 L MCHC 27.0 L RDW 23.9 H Plt Count 260 MPV 10.2 Sodium 141 Potassium 4.6 H Chloride 93 L Carbon Dioxide 43 H* BUN 21 H Creatinine 0.63 Est GFR ( Amer) > 60 Est GFR (Non-Af Amer) > 60 BUN/Creatinine Ratio 33 H Glucose 100 H Calculated Osmolality 295 Calcium 8.7 Magnesium 1.9 Total Bilirubin 0.3 AST 20 ALT 14 Alkaline Phosphatase 91 Serum Total Protein 5.3 L Albumin 2.5 L Globulin 2.8 Albumin/Globulin Ratio 0.9 L - ABG Interpretation ABG results: ABG ABG pH 7.41 pH Units (7.32-7.45) 10/28/16 04:15 ABG pCO2 85 mmHg (35-45) H* 10/28/16 04:15 ABG pO2 57 mmHg (85-104) L 10/28/16 04:15 ABG O2 Saturation 89 % (95-98) L 10/28/16 04:15 Consult Discharge Plan - Plan Referrals: Magdy Parra MD [Primary Care Provider] - 11/04/16 1:45 pm (Please follow up as schedule...)
[2016-10-30 07:52] LABS: Anisocytosis 2+ (Not Present)
[2016-10-30 07:53] LABS: Hypochromasia Present (Not Present); Microcytosis Present (Not Present); Platelet Estimate Normal (Normal)
[2016-10-30] MEDS: acetaZOLAMIDE 250 MG TABLET PO SCH (08:08)
[2016-10-30] MEDS: Folic Acid 1 MG TABLET PO SCH (08:08)
[2016-10-30] MEDS: Ascorbic Acid 500 MG TABLET PO SCH ×2 (08:08→19:46)
[2016-10-30] MEDS: Furosemide 40 MG TABLET PO SCH (08:08)
[2016-10-30] MEDS: *HR* Amiodarone 200 MG TABLET PO SCH (08:09)
--- NOTE | 2016-10-30 13:37 | Internal Med Progress Note ---
Date of Encounter: 10/30/16 Time of Encounter: 13:25 - Assessment and plan (1) Symptomatic anemia Current Visit: Yes Status: Acute (2) Generalized weakness Current Visit: Yes Status: Acute (3) Chronic respiratory failure Current Visit: Yes Status: Chronic Qualifiers: Respiratory failure complication: unspecified whether with hypoxia or hypercapnia Qualified Code(s): J96.10 - Chronic respiratory failure, unspecified whether with hypoxia or hypercapnia (4) Falls Current Visit: Yes Status: Acute Qualifiers: Encounter type: initial encounter Qualified Code(s): W19.XXXA - Unspecified fall, initial encounter (5) Elevated troponin Current Visit: Yes Status: Acute (6) Atrial fibrillation Current Visit: Yes Status: Chronic Qualifiers: Atrial fibrillation type: unspecified Qualified Code(s): I48.91 - Unspecified atrial fibrillation (7) Chronic anticoagulation Current Visit: Yes Status: Chronic (8) Leukocytosis Current Visit: Yes Status: Chronic Qualifiers: Leukocytosis type: unspecified Qualified Code(s): D72.829 - Elevated white blood cell count, unspecified (9) Systolic CHF Current Visit: Yes Status: Chronic Qualifiers: Congestive heart failure chronicity: chronic Qualified Code(s): I50.22 - Chronic systolic (congestive) heart failure - Subjective Interval history: Sitting comfortably up in bed. Denied shortness of breathe, cough, chest pain, chills. Refused to have EGD. Requesting breakfast since she is no longer NPO. - Constitutional Vitals: Temp Pulse Resp BP Pulse Ox 97.0 F L 72 16 111/59 98 10/30/16 11:26 10/30/16 11:26 10/30/16 11:26 10/30/16 11:26 10/30/16 11:26 General appearance: Present: A&O X 3, pleasant, no acute distress, answers questions appropriately Internal Medicine: Result - Labs CBC & Chem 7: 10/30/16 06:14 10/30/16 06:14 Labs: Short CBC 10/30/16 Range/Units 06:14 WBC 11.1 (4.3-11.1) K/mcL Hgb 8.4 L (11.5-15.4) g/dL Hct 31.1 L (35.3-44.9) % Plt Count 260 (140-400) K/mcL Neutrophils # 4.9 (1.6-8.9) K/mcL BMP 10/30/16 06:14 Sodium 141 Potassium 4.6 H Chloride 93 L Carbon Dioxide 43 H* BUN 21 H Creatinine 0.63 Glucose 100 H Calcium 8.7 Liver Function 10/30/16 Range/Units 06:14 Total Bilirubin 0.3 (0.2-1.2) mg/dL AST 20 (5-34) Units/L ALT 14 (0-55) Units/L Alkaline Phosphatase 91 (38-126) Units/L Albumin 2.5 L (3.5-5.0) g/dL - ABG Interpretation ABG results: ABG ABG pH 7.41 pH Units (7.32-7.45) 10/28/16 04:15 ABG pCO2 85 mmHg (35-45) H* 10/28/16 04:15 ABG pO2 57 mmHg (85-104) L 10/28/16 04:15 ABG O2 Saturation 89 % (95-98) L 10/28/16 04:15 - VTE Reasons for not Prescribing Prophylaxis: Not indicated-Anticoagulated or INR therapeutic Consult Discharge Plan - Plan Referrals: Magdy Parra MD [Primary Care Provider] - 11/04/16 1:45 pm (Please follow up as schedule...)
--- NOTE | 2016-10-30 13:40 | Discharge Summary ---
<Ella Galan - Last Filed: 10/30/16 15:53> Date of Encounter: 10/30/16 Time of Encounter: 13:39 - Discharge Diagnosis (1) Symptomatic anemia Priority: Primary Status: Acute Comments: Patient refused EGD/ colonoscopy so GI consult canceled. The patient was counseled on importance of the procedures to check for GIB. Palliative care was consulted and has been helping to determine code status. Also with placement in a rehabilitation center. (2) Generalized weakness Priority: Secondary Status: Acute Comments: Possibly contributed by anemia, CHF, COPD. PTOT referal. (3) Chronic respiratory failure Priority: Secondary Status: Chronic Comments: ABG showed PaCO2 of 85 and pH of 7.41. Patient refused BiPAP so continued supplemental oxygen. Patient breathing comfortably. Qualifiers: Respiratory failure complication: unspecified whether with hypoxia or hypercapnia Qualified Code(s): J96.10 - Chronic respiratory failure, unspecified whether with hypoxia or hypercapnia (4) Falls Priority: Secondary Status: Acute Comments: Possibly due to the generalized weakness. PTOT recommended that she is able to participate with PT but fatigues quickly and is not safe to go home. Social work has helped to get patient transferred to rehabilitation facility. Qualifiers: Encounter type: initial encounter Qualified Code(s): W19.XXXA - Unspecified fall, initial encounter (5) Elevated troponin Priority: Secondary Status: Acute Comments: Trending down. (6) Atrial fibrillation Priority: Secondary Status: Chronic Comments: Xarelto stopped last night for the possibility of EGD/ colonscopy. However patient refused procedure. Qualifiers: Atrial fibrillation type: unspecified Qualified Code(s): I48.91 - Unspecified atrial fibrillation (7) Chronic anticoagulation Priority: Secondary Status: Chronic Comments: Xarelto discontinued last night due to possible EGD/ colonscopy today- however patient refused procedure. (8) Leukocytosis Priority: Secondary Status: Chronic Comments: WBC returned to normal. History of leukocytosis. Qualifiers: Leukocytosis type: unspecified Qualified Code(s): D72.829 - Elevated white blood cell count, unspecified (9) Systolic CHF Priority: Secondary Status: Chronic Comments: Echocardiogram ordered. Ejection fraction from 08/11/2015 was 35%. Qualifiers: Congestive heart failure chronicity: chronic Qualified Code(s): I50.22 - Chronic systolic (congestive) heart failure - Discharge Medications Home Medications: Amiodarone [Cordarone] 200 mg PO DAILY #30 tablet 08/23/15 [Rx] Aspirin 81 mg PO DAILY #30 tab.chew 08/23/15 [Rx] Atorvastatin [Lipitor] 40 mg PO HS #30 tablet 08/23/15 [Rx] Budesonide/Formoterol 80/4.5 [Symbicort 80/4.5] 2 puff IH BIDR #2 inhaler 08/22 [Rx] Carvedilol [Coreg] 6.25 mg PO BIDWM #60 tablet 08/23/15 [Rx] Albuterol Sulfate [Proair Hfa] 2 puff IH Q4H PRN 10/07/15 [History] Diclofenac Sodium [Voltaren] 1 appl TP QID 10/07/15 [History] Polyethylene Glycol 3350 [MiraLAX bowel prep] 17 gm PO DAILY 10/07/15 [History] Ascorbate Calcium [Vitamin C] 500 mg PO BID 10/28/16 [History] Clarithromycin [Biaxin] 500 mg PO BID 10/28/16 [History] Ferrous Sulfate [Slow Fe] 142 mg PO BID 10/28/16 [History] Furosemide [Lasix] 40 - 80 mg PO DAILY 10/28/16 [History] Lisinopril 2.5 mg PO DAILY 10/28/16 [History] OxyCODONE Immed Rel [Roxicodone 5 MG] 5 mg PO TID 10/28/16 [History] OxyCODONE/APAP 10/325 [Percocet 10/325 MG] 1 each PO TID 10/28/16 [History] Oxycodone HCl/Acetaminophen [Percocet 10-325 mg Tablet] 2 each PO HS 10/28/16 [ History] Potassium Chloride [K-Tab ER] 20 meq PO DAILY 10/28/16 [History] metOLazone [Zaroxolyn] 5 mg PO Q48H 10/28/16 [History] Allergies/Adverse Reactions: Allergies prednisone Allergy (Verified 08/11/15 11:43) Hives Procedures/tests Complete & Pending: Procedures Performed prior 72 hours Category Date Time Status EV echocardiogram Routine Y 10/29/16 15:29 Completed Date of admission: 10/28/16 03:10 Primary care physician: Magdy Parra MD Consults: 10/28/16 03:14 Consult to Physical Therapy [CONS] Routine Comment: Evaluate, develop and implement POC Reason for Consult: Falls at home 10/28/16 05:44 Consult to Public Relations Assistant [CONS] Routine Reason for SW Consult: Deconditioning 10/29/16 09:12 Consult to Palliative Care [CONS] Routine Comment: Consulting Provider: Palliative Care Laura Reason for Consult: code status Call Completed: No 10/29/16 11:39 OT [Consult to Occupational Therapy] [CONS] Routine Comment: Evaluate, develop and implement POC Reason for Consult: eval & tx - Patient Status Disposition: Transfer Inpatient Rehab Fac Condition: Fair Functional capacity at discharge: uses cane/walker Overall status at discharge: patient is progressing back to baseline - Discharge Instructions Follow Up With: Magdy Parra MD [Primary Care Provider] - 11/04/16 1:45 pm (Please follow up as schedule...) - Diet and Activity Activity: as per physical therapy Interval History: 81-year-old female past medical history of A.Fib, congestive heart failure, COPD , arthritis presented to the emergency department due to generalized weakness and fall for the past several days. Her hemoglobin was 6.4 and was given a unit of packed red blood cells in the ED. She was admitted. Patient had an ABG that showed PaCO2 of 85 and pH of 7.41. Patient refused BiPAP so supplemental oxygen was continued. Due to anemia GI was scheduled to be consulted for possible colonoscopy/EGD. However patient refused both procedures. The next day her hemoglobin was still just 7.1 so another unit of packed red blood cells was given. It was then explained again to her why she should still consider getting both procedures if G.I. suggested so. She was adamant about not wanting either procedures. Her IV fell out that day and she refused to let the nurse put a new one in. The patient stated she would like to go home. However family stated that they did not want her to come home. Palliative care was consulted and spoke to her about code status and confirmed full capacity to understand and make informed decisions. The patient has a sound mind is alert and oriented. Social work then talked with her and her family about going to a rehabilitation center. She was hesitant at 1st but then she and her family decided that it was best for her to go to the rehabilitation center. The rehabilitation center accepted her. Currently discharge status is pending on insurance approval. She is to follow up with her PCP and to return to the hospital if she should worsen. Hospital course: Ms. Brooks is a 81 year old female - Time Spent with Patient Total time spent providing and/or coordinating discharge services: - Constitutional Vitals: Temp Pulse Resp BP Pulse Ox 97.0 F L 72 16 111/59 98 10/30/16 11:26 10/30/16 11:26 10/30/16 11:26 10/30/16 11:26 10/30/16 11:26 General appearance: Present: A&O X 3, pleasant, no acute distress, answers questions appropriately - Head Head exam: Present: atraumatic, normal inspection - Eye Eye exam: Present: normal appearance, conjuntiva pink. Absent: scleral icterus - Respiratory Respiratory exam: Present: CTAB. Absent: accessory muscle use, respiratory distress, rhonchi, wheezes - Cardiovascular Cardiovascular exam: Present: irregular rhythm, systolic murmur. Absent: clicks , rubs - GI/Abdominal GI/Abdominal exam: Present: normal bowel sounds. Absent: distended, tenderness , no peritoneal signs - Extremities Exam Extremities exam: Present: calf tenderness, pedal edema, radial pulses palpable and symetrical - Expanded Lower Extremities Exam Lower Leg exam: Present: swelling, tenderness. Absent: crepitus, ecchymosis - Neurological Exam Neurological exam: Present: alert, oriented X3. Absent: altered, facial droop, speech deficit - VTE Reasons for not Prescribing Prophylaxis: Not indicated-Anticoagulated or INR therapeutic <Wei Lundy - Last Filed: 10/30/16 20:22> Date of Encounter: 10/30/16 - Discharge Diagnosis (1) Acute on chronic systolic heart failure Status: Acute Procedures/tests Complete & Pending: Procedures Performed prior 72 hours Category Date Time Status EV echocardiogram Routine Y 10/29/16 15:29 Completed Date of admission: 10/28/16 03:10 Primary care physician: Magdy Parra MD Consults: 10/28/16 03:14 Consult to Physical Therapy [CONS] Routine Comment: Evaluate, develop and implement POC Reason for Consult: Falls at home 10/28/16 05:44 Consult to Public Relations Assistant [CONS] Routine Reason for SW Consult: Deconditioning 10/29/16 09:12 Consult to Palliative Care [CONS] Routine Comment: Consulting Provider: Palliative Care Laura Reason for Consult: code status Call Completed: No 10/29/16 11:39 OT [Consult to Occupational Therapy] [CONS] Routine Comment: Evaluate, develop and implement POC Reason for Consult: eval & tx Hospital course: Ms. Brooks is a 81 year old female - Time Spent with Patient Total time spent providing and/or coordinating discharge services: - Constitutional Vitals: Temp Pulse Resp BP Pulse Ox 98.3 F 72 18 100/58 98 10/30/16 16:02 10/30/16 16:02 10/30/16 16:02 10/30/16 16:02 10/30/16 19:58 - Attending Attestation I examined this patient and my medical decision-making was reviewed with the Resident Physician, Dr Galan. I agree with the documented findings, disposition and treatment plan as described except to the extent set forth below. Have discussed the case with palliative care service. Patient is currently DNR/ DNI. Have advised the patient that she will require subacute rehabilitation. She is agreeable for short-term rehabilitation. We will continue with diuresis of Lasix. PT OT. Social work consult for discharge.
[2016-10-30 15:56] LABS: Hematocrit 34.3 % (35.3-44.9)
[2016-10-30] MEDS: metOLazone 5 MG TABLET PO SCH (16:00)
[2016-10-31] MEDS: *HR* OxyCODONE/APAP 10/325 TABLET PO PRN ×3 (00:01→18:33)
[2016-10-31 05:09] LABS: Immature Granulocytes % 0.4 % (0-4); Lymphocytes % 47.9 %; Red Cell Distribution Width 24.6 % (11.5-14.5)
[2016-10-31 05:11] LABS: Basophils % 0.3 %; Eosinophils # 0.1 K/mcL (0.0-0.6); Eosinophils % 0.6 %; Hematocrit 33.9 % (35.3-44.9); Hemoglobin 8.8 g/dL (11.5-15.4); Lymphocytes # 6.4 K/mcL (0.6-4.6); Mean Corpuscular Hemoglobin 20.6 pg (28.0-33.3); Mean Corpuscular Volume 79.4 fL (83.0-100.0); Mean Platelet Volume 10.1 fL (9.4-12.4); Monocytes # 1.2 K/mcL (0.0-1.3); Monocytes % 9.2 %; Neutrophils # 5.6 K/mcL (1.6-8.9); Platelet Count 273 K/mcL (140-400); Red Blood Count 4.27 M/mcL (3.82-4.97); Segmented Neutrophils % 41.6 %
[2016-10-31 05:29] LABS: Alanine Aminotransferase 12 Units/L (0-55); Albumin 2.6 g/dL (3.5-5.0); Albumin/Globulin Ratio 0.9 (1.1-2.2); Alkaline Phosphatase 92 Units/L (38-126); Aspartate Amino Transferase 13 Units/L (5-34); BUN/Creatinine Ratio 39 (6-26); Bilirubin,Total 0.3 mg/dL (0.2-1.2); Blood Urea Nitrogen 30 mg/dL (7-20); Calcium 8.4 mg/dL (8.6-10.8); Chloride 92 mEq/L (98-109); Globulin 2.9 g/dL (2.4-3.5); Glucose 110 mg/dL (70-99); Osmolality,Calculated 299 (280-300); Sodium 141 mEq/L (136-145); Total Protein 5.5 g/dL (6.0-8.3); eGFR For African Americans > 60 (> 60); eGFR For Non-African Americans > 60 (> 60)
[2016-10-31 05:36] LABS: Potassium 4.6 mEq/L (3.5-4.5)
[2016-10-31 05:37] LABS: Carbon Dioxide 47 mEq/L (19-29)
[2016-10-31 05:43] LABS: Anisocytosis 3+ (Not Present); Microcytosis Present (Not Present); Platelet Estimate Normal (Normal); Reactive Lymphocytes Present (Not Present)
[2016-10-31 05:44] LABS: Polychromasia 1+ (Not Present)
[2016-10-31] MEDS: ALPRAZolam 0.25 MG TABLET PO PRN ×2 (06:57)
[2016-10-31] MEDS: acetaZOLAMIDE 250 MG TABLET PO SCH (08:46)
[2016-10-31] MEDS: *HR* Amiodarone 200 MG TABLET PO SCH (08:46)
[2016-10-31] MEDS: Ascorbic Acid 500 MG TABLET PO SCH (08:47)
[2016-10-31] MEDS: Furosemide 40 MG TABLET PO SCH (08:47)
[2016-10-31] MEDS: Folic Acid 1 MG TABLET PO SCH (08:47)
[2016-10-31] MEDS: Budesonide/Formoterol 80/4.5 MDI IH SCH (09:55)
--- NOTE | 2016-10-31 13:07 | Physician Discharge Referral ---
<Ella Galan - Last Filed: 10/31/16 13:05> Extended[facility] Referral Info Transfer To: ECF Provider in Charge after Transfer: PCP Institutional Level of Care: Skilled - Diagnosis (1) Symptomatic anemia Status: Acute (2) Generalized weakness Status: Acute (3) Chronic respiratory failure Status: Chronic (4) Falls Status: Acute (5) Elevated troponin Status: Acute (6) Atrial fibrillation Status: Chronic (7) Chronic anticoagulation Status: Chronic (8) Leukocytosis Status: Chronic (9) Systolic CHF Status: Chronic - Transfer Medications Prescriptions: acetaZOLAMIDE [Diamox] 500 mg PO DAILY #30 tablet OxyCODONE Immed Rel [Roxicodone 5 MG] 5 mg PO TID 7 Days OxyCODONE/APAP 10/325 [Percocet 10/325 MG] 1 each PO TID 7 Days OxyCODONE/APAP 10/325 [Percocet 10/325 MG] 2 each PO HS 7 Days Home Medications: Amiodarone [Cordarone] 200 mg PO DAILY #30 tablet 08/23/15 [Rx] Aspirin 81 mg PO DAILY #30 tab.chew 08/23/15 [Rx] Atorvastatin [Lipitor] 40 mg PO HS #30 tablet 08/23/15 [Rx] Budesonide/Formoterol 80/4.5 [Symbicort 80/4.5] 2 puff IH BIDR #2 inhaler 08/22 [Rx] Carvedilol [Coreg] 6.25 mg PO BIDWM #60 tablet 08/23/15 [Rx] Albuterol Sulfate [Proair Hfa] 2 puff IH Q4H PRN 10/07/15 [History] Diclofenac Sodium [Voltaren] 1 appl TP QID 10/07/15 [History] Polyethylene Glycol 3350 [MiraLAX bowel prep] 17 gm PO DAILY 10/07/15 [History] Ascorbate Calcium [Vitamin C] 500 mg PO BID 10/28/16 [History] Clarithromycin [Biaxin] 500 mg PO BID 10/28/16 [History] Ferrous Sulfate [Slow Fe] 142 mg PO BID 10/28/16 [History] Furosemide [Lasix] 40 - 80 mg PO DAILY 10/28/16 [History] Lisinopril 2.5 mg PO DAILY 10/28/16 [History] Oxycodone HCl/Acetaminophen [Percocet 10-325 mg Tablet] 2 each PO HS 10/28/16 [ History] Potassium Chloride [K-Tab ER] 20 meq PO DAILY 10/28/16 [History] metOLazone [Zaroxolyn] 5 mg PO Q48H 10/28/16 [History] OxyCODONE Immed Rel [Roxicodone 5 MG] 5 mg PO TID 7 Days 10/31/16 [Rx] OxyCODONE/APAP 10/325 [Percocet 10/325 MG] 1 each PO TID 7 Days 10/31/16 [Rx] OxyCODONE/APAP 10/325 [Percocet 10/325 MG] 2 each PO HS 7 Days 10/31/16 [Rx] acetaZOLAMIDE [Diamox] 500 mg PO DAILY #30 tablet 10/31/16 [Rx] Allergies/Adverse Reactions: Allergies prednisone Allergy (Verified 08/11/15 11:43) Hives - Respiratory Orders Oxygen / L per min Smoking Cessation: Smoking cessation has been advised. For more information, call the [employer] Quit Line at 8-184-CENR-UUB. 3L nasal cannula - Advance Directives Living Will: No Power of Key Punch Teacher: Yes (Jennyfer (son)) Code Status: DNR-Arrest/Don't Intubate - Mobility Orders Ambulate (with assist devices) - Rehabiliation Orders Rehab Potential: Poor Rehab Orders: Evaluation for Physical Therapy - Diet Orders Regular CERTIFICATION: I certify that the transfer of the above named patient to an Extended Care Facility is necessary for the continuing treatment of the diagnosis listed. The above information is true and accurate reflection of patient's current condition. Confidential - Redisclosure prohibited without a patient's written consent. <Wei Lundy - Last Filed: 10/31/16 18:08> Extended[facility] Referral Info Provider in Charge after Transfer: PCP Institutional Level of Care: Skilled - Diagnosis (1) Acute on chronic systolic heart failure Status: Acute - Respiratory Orders Smoking Cessation: Smoking cessation has been advised. For more information, call the [employer] Quit Line at 4-745-UBGO-IST. CERTIFICATION: I certify that the transfer of the above named patient to an Extended Care Facility is necessary for the continuing treatment of the diagnosis listed. The above information is true and accurate reflection of patient's current condition. Confidential - Redisclosure prohibited without a patient's written consent. I examined this patient and my medical decision-making was reviewed with the Resident Physician, Dr Galan. I agree with the documented findings, disposition and treatment plan as described except to the extent set forth below.
[2016-10-31 15:17] VITALS: BP 99/57
[2016-10-31 18:10] LABS: Hematocrit 35.4 % (35.3-44.9); Hemoglobin 9.4 g/dL (11.5-15.4)
== END 2016-10-31 18:48 | DRG 811 ==
LOC: 2ANU 21:56 → EMEROO 21:56 → 2ANU 10-28 01:10 → SUATTDRO 10-28 03:10
PROVIDERS: ADMIT Internal Medicine; ATTEND Internal Medicine